=== PATIENT | female | born 1985 | race Caucasian/White ===

== ENCOUNTER 2022-04-07 13:24 | Inpatient (IN) | payer OTHER ==
[~2022-04-07] VITALS: Ht 160 cm; Wt 71.7 kg
[2022-04-08 22:30] VITALS: BP 136/79; PULSE 75; TEMP 97.6
[2022-04-08 23:30] VITALS: BP 132/70; PULSE 59
[2022-04-08 23:37] LABS: BASO % 0.3 % (0.0-2.0); EOS # 0.1 K/mm3 (0.0-0.7); EOS % 1.1 % (0.0-4.0); GRAN # 6.2 K/mm3 (1.4-6.5); GRAN % 70.7 % (42.2-75.2); HEMOGLOBIN 11.5 g/dl (12.5-16.0); LYMPH # 1.5 K/mm3 (1.2-3.4); LYMPH % 16.8 % (20.0-51.0); MEAN CELL VOLUME 91 fl (80.0-100.0); MEAN CORPUSCULAR HEMOGLOBIN 31 pg (27-31); MEAN CORPUSCULAR HGB CONC 34 g/dl (33.0-37.0); MEAN PLATELET VOLUME 13.5 fl (7.4-10.4); MONO # 0.9 K/mm3 (0.1-0.6); MONO % 10.4 % (1.7-9.3); PLATELET COUNT 166 K/mm3 (130-400); RED BLOOD COUNT 3.77 M/mm3 (4.10-5.30); REDCELL DISTRIBUTION WIDTH-CV 13.4 % (11.5-14.5)
[2022-04-08 23:38] LABS: HEMATOCRIT 34.2 % (37.0-47.0)
[2022-04-09] VITALS (44 sets, daily range): BP systolic 83–146; BP diastolic 44–84; PULSE 48–114; TEMP 97.4–98.1
[2022-04-09 00:13] LABS: ALBUMIN 2.6 gm/dL (3.5-5.0); BILIRUBIN,TOTAL 0.2 mg/dL (0.2-1.2); CALCIUM 8.7 mg/dL (8.4-10.2); CREATININE, serum 0.73 mg/dL (0.57-1.11); TOTAL PROTEIN 6.2 gm/dL (6.2-8.1)
[2022-04-09] MEDS ORDERED: PRENATAL TABLET PO (01:07)
[2022-04-10 04:10] VITALS: BP 104/64; PULSE 72; TEMP 98.2
[2022-04-10] MEDS ORDERED: IBU800 M1 PO (08:23)
[2022-04-10 08:48] VITALS: BP 113/57; PULSE 81; TEMP 97.8
[2022-04-10 14:00] VITALS: BP 108/66; PULSE 85; TEMP 98.1
== END 2022-04-10 17:30 | disposition home or self-care (01) | DRG 807 ==
LOC: OB 04-08 13:23 → LDR 04-08 21:45 → OB 04-09 17:00
PROVIDERS: ADMIT Student in an Organized Health Care Education/Training Program
PROC: 3E0P7VZ Introduction of Hormone into Female Reproductive, Via Natural or Artificial Opening (ICD-10-PCS; 2022-04-08)
PROC: 3E033VJ Introduction of Other Hormone into Peripheral Vein, Percutaneous Approach (ICD-10-PCS; 2022-04-08)
PROC: 10E0XZZ Delivery of Products of Conception, External Approach (ICD-10-PCS; principal; 2022-04-09)
PROC: 0KQM0ZZ Repair Perineum Muscle, Open Approach (ICD-10-PCS; 2022-04-09)
PROC: 0UQMXZZ Repair Vulva, External Approach (ICD-10-PCS; 2022-04-09)
DX: O36.5930 Maternal care for other known or suspected poor fetal growth, third trimester, not applicable or unspecified (principal); Z37.0 Single live birth; Z3A.39 39 weeks gestation of pregnancy; Z86.16 Personal history of COVID-19
CPT/HCPCS: J2590; J2795; J7120